=== PATIENT | male | born 2000 | race Caucasian/White ===

== ENCOUNTER 2022-09-29 12:59 | Outpatient (CLI) | payer OTHER ==
[2022-09-29 13:38] VITALS: BP 108/68
--- NOTE | 2022-09-29 13:38 | SLEEP CARE CONSULTATION ---
Information from patient questionnaire entered by Shahid Paez. I have reviewed and concur with the information entered by Shahid Paez. This document represents the service I personally performed and the decisions made by me, Kareen Shelby ARNP. History of Present Illness Service Date and Time: 09/29/2022 1259 Reason for Visit: New patient Chief Complaint: reports: Insomnia, Unrefreshed sleep, Snoring, Fatigue, Frequent awakenings at night Date of Onset: 5+YRS Usual bedtime: 2AM Time it takes to fall asleep: HRS NORMALLY Snores at night: Yes Observed to quit breathing while asleep: Yes Sleeps alone due to snoring: No Number of times waking at night: 5+ Reasons for waking at night: reports: Pain, Bathroom, Other (NOISE, UNKNOWN). denies: Choking, Snoring, Gasping for air Toss, Turn, or Twitch while sleeping: Yes Recalls having dreams: No Usually gets out of bed at: 1PM Feels refreshed in the morning: No Morning headache: Yes (nightly lately; AFTER AN HR OR TWO) Sleepy or fatigued during the day: Yes Ever fallen asleep while driving: No Takes day naps: Yes (rarely) Dreams during day naps: No Prior sleep studies: No Additional HPI information: I had the pleasure of seeing LAZARO ROJAS today regarding the possibility of him having a sleep disorder. His current complaints are fatigue, frequent night awakenings, snoring and unrefreshed sleep. He was following up with PCP and they asked him about sleep. He was then referred here after some evaluation. He states it takes hours for him to fall asleep. He did try melatonin a couple of times and this did help a little. He did not take it long because he does not like taking medication. He states he just lays and looks at ceiling, trying not to think. He denies racing thoughts. He states his has told him that he snores loudly and will stop breathing at night. He will wake up frequently during the night. He states he has a grandfather who is on a breathing machine at night but does not know if it is for sleep apnea or his heart. - Parasomnia Symptoms Ever been unable to move upon waking from sleep: No Walks in sleep: No (did when a kid) Talks in sleep: Yes Ever acted out dreams in sleep: Yes (small movements) Ever felt weak in the knees when startled or emotional: No Bothered by creepy, crawly, restless sensations in legs: Yes (frequently, throughout the day) Problems with memory or concentration: No Subjective Initial [place] Sleepiness Scale score: 5 (09/29/22) Past Medical History Past Medical History: reports: GERD (as a child, better now with weight loss), Other (injuries to both knees when younger) Social History The patient's occupation is a AM. Patient is and lives in . Have you smoked in the past 12 months: No Alcohol use: Yes Alcohol amount and frequency: 1-2 DRINKS LESS THAN A MONTH Caffeine use: Yes Caffeine amount and frequency: 1-2 MONSTERS DAILY Family History Family history of sleep disordered breathing: Yes Family Hx Sleep Apnea: Mother: Snoring, Sleep apnea - Untreated, Father: Snoring, Sleep apnea - Untreated, Sibling: Sleep apnea - Untreated, Grandparent: Snoring, Sleep apnea - Untreated Allergies and Home Medications Known drug allergies: No Drug allergies reviewed: Yes Home medication list reviewed: Yes (no daily medications) Review of Systems Weight loss over past 5 years: 150 Cardiovascular: reports: irregular heart rate or pulse. denies: high blood pressure Gastrointestinal: reports: heartburn Neurological: reports: headaches Psychiatric: denies: anxiety, depression Ear/Nose/Throat: reports: nasal congestion, sinus problems, nose bleeds, dry mouth/throat, injury to nose. denies: tonsillectomy Endocrine: reports: too hot or cold, excessive thirst Musculoskeletal: reports: joint pain, neck pain, back pain, muscle pain or cramping Immunologic: reports: sneezing Physical Exam Vital signs obtained and entered by: SHAHID Barton MA Blood Pressure: 108/68 (LEFT ARM) Cuff size: regular Heart Rate: 64 O2 Saturation: 98 Height: 5 ft 10 in Weight: 207 lb 9.6 oz Body Mass Index: 29.7 BMI Classification: Overweight Neck circumference: 15.25 Nostrils: patent to airflow Mouth and throat: narrow oropharynx Soft palate: long Hard palate: normal Uvula: normal Uvula visualization: 50% Mallampati Class II Tongue: enlarged in size with teeth holder on lateral edges Tonsils: small Neck: normal w/o lymphadenopathy or thyromegaly Heart: regular rate and rhythm Lungs: clear bilaterally Impression and Plan 1. Suspected Obstructive Sleep Apnea-Hypopnea Syndrome, as suggested by a history of loud and irregular snoring, observed cessation of breath while asleep, frequent awakening during the night and unrefreshed sleep. Narrow oropharynx and obesity are common predisposing factors for obstructive sleep apnea-hypopnea syndrome. I recommend proceeding to polysomnography to confirm the diagnosis and to assess severity. If the patient has significant sleep disordered breathing, a manual CPAP titration study will also be performed to find the optimal treatment pressure. I informed the patient of what the sleep studies involve and after some discussion, obtained agreement to proceed. The pathophysiology of obstructive sleep apnea-hypopnea syndrome was discussed with the patient and health risks of cardiovascular and cerebrovascular disease if not treated. Risks of drowsy driving discussed in detail and patient advised to avoid long distance driving and to lung puller at the first sign of drowsiness. Patient agreed to plan. * Schedule polysomnography +- manual CPAP titration study and return in 1-2 weeks after the study to discuss result and initiate therapy. * Avoid long distance driving or driving when feeling sleepy. * Avoid alcohol, sedative and muscle relaxant around bedtime. * Attempt to lose weight. * Review instructions provided by trained office staff on how to prepare for the sleep study. * Return for follow-up after sleep study completed. Counseling Topics: Weight loss health impact Visit Type: In Office Time Spent with Patient (minutes): 21 Provider Statement: I spent 100% of the Face to Face Visit with the patient with greater than 50% spent counseling the patient and coordination of care.
== END 2022-09-29 13:00 | disposition home or self-care (01) ==
LOC: SC 12:59
PROVIDERS: ATTEND Nurse Practitioner Family
DX: R06.83 Snoring (principal); R06.81 Apnea, not elsewhere classified; G47.8 Other sleep disorders; E66.3 Overweight; Z68.29 Body mass index [BMI] 29.0-29.9, adult
CPT/HCPCS: 99202; 99212

== ENCOUNTER 2022-12-09 14:17 | Outpatient (CLI) | payer OTHER | END 2022-12-09 14:18 | disposition home or self-care (01) | LOC: SC 14:17 | PROVIDERS: ATTEND Nurse Practitioner Family | DX: R06.83 Snoring (principal); G47.8 Other sleep disorders; R06.81 Apnea, not elsewhere classified; R53.83 Other fatigue; E66.3 Overweight; Z68.29 Body mass index [BMI] 29.0-29.9, adult | CPT/HCPCS: 95806 ==

== ENCOUNTER 2023-01-26 08:58 | Outpatient (CLI) | payer OTHER ==
--- NOTE | 2023-01-26 09:29 | SLEEP CARE CONSULTATION ---
Information from patient questionnaire entered by Franci Paez. I have reviewed and concur with the information entered by Franci Paez. This document represents the service I personally performed and the decisions made by , Kareen Shelby ARNP. History of Present Illness Service Date and Time: 01/26/2023 08 Initial [place] Sleepiness Scale score: 5 (09/29/22) Current [place] Sleepiness Scale score: 3 (01/26/23) Additional HPI information: LAZARO ROJAS returns for follow up and results of the recently performed home sleep study. The patient was informed of the following findings: No significant sleep disordered breathing with an average AHI of 1.2 and ibllie oxygen saturation of 92%. I explained the pathophysiology behind obstructive sleep apnea. Patient does not have sleep apnea and was advised how weight gain could increase the risk of developing sleep apnea in the future. I strongly encouraged the patient to lose weight. Patient has light snoring. Snoring can be reduced by weight loss. Weight loss is best achieved with diet consult. Patient instructed to contact PCP for referral. Snoring can also be treated with an oral appliance from a dentist. Advised to check insurance coverage. In addition, an ENT evaluation can be do to see if other treatment is indicated. Patient counseled not drink alcohol less than 4 hours before bedtime as it can increase snoring and apnea. Patient was cautioned about risks of drowsy driving until sleepiness symptoms resolve. Patient denies drowsy driving. Sleep Study - Results Type of Sleep Study: Home sleep study (COMPLETED ON 12/10/22) Prior sleep studies: No Polysomnography/Home Sleep Study results: Physician Impression: The quality of the study is good. The length of the study is adequate (> 240 minutes). Please also see the tabulated and graphic data. 1. No significant sleep disordered breathing, with an AHI of 1.2/hr and billie SaO2 of 92%. During the study, the patient had 2 apneas (2 obstructive, 0 central, 0 mixed) and 6 hypopneas. The longest episode lasted 73.0 seconds. The patient slept mostly supine (supine AHI was 1.5 and non-supine, 0.71). Allergies and Home Medications Known drug allergies: No Drug allergies reviewed: Yes Home medication list reviewed: Yes (no changes) Review of Systems Review of systems same as previous: Yes (no changes) Physical Exam Vital signs obtained and entered by: FRANCI Barton MA Blood Pressure: 122/72 (LEFT ARM) Cuff size: regular Heart Rate: 64 O2 Saturation: 99 Height: 5 ft 10 in Weight: 222 lb Body Mass Index: 31.8 BMI Classification: Obese Impression and Plan 1. Snoring but no significant sleep disordered breathing. Patient advised that often weight loss will reduce snoring as well as apnea risk. An oral appliance can also be used for snoring. This would require a dental consultation. Patient cautioned not to use other online appliances as can cause bite issues. Patient is advised to check if insurance will cover. An ENT consult can also be helpful to determine if any other treatment is an option. 2. Obesity, unspecified. Currently patients BMI is 31.8. Obesity increases the risk of apnea, CPAP pressure requirements and overall health risks especially cardiovascular and diabetes. Thus patient is advised to lose weight. * Attempt to lose weight * Avoid alcohol consumption near bedtime * The patient is cautioned about driving until sleepiness is completely resolved. * Return as needed for follow up. Counseling Topics: Weight loss health impact Visit Type: In Office Provider Statement: I spent 100% of the Face to Face Visit with the patient with greater than 50% spent counseling the patient and coordination of care.
--- NOTE | 2023-01-26 09:30 | Sleep Patient Instructions ---
Sleep Center Visit Summary - Patient Visit Information Reason for Visit: Sleep Study followup - Patient Instructions Additional Instructions: Your sleep study today was negative for significant sleep disordered breathing. You were found to have episodes of snoring. There are different ways to control snoring including weight loss, oral devices made by a dentist or surgical options through ENT specialist. You should not use oral devices that do not fit properly because they can affect your bite. You should also check insurance coverage of oral devices for snoring because they may not be cover well. You may obtain a referral to an ENT specialist through your primary provider Follow-up as needed. - Clinic Information Contact: [facility] [address] [place] [id number] [email or web address] T: [phone]
[2023-01-26 09:38] VITALS: BP 122/72; O2SAT 99
== END 2023-01-26 08:59 | disposition home or self-care (01) ==
LOC: SC 08:58
PROVIDERS: ATTEND Nurse Practitioner Family
DX: R06.83 Snoring (principal); E66.9 Obesity, unspecified; Z68.31 Body mass index [BMI] 31.0-31.9, adult
CPT/HCPCS: 99212

== ENCOUNTER 2023-05-01 12:42 | Outpatient (CLI) | payer OTHER ==
--- NOTE | 2023-05-02 15:24 | MRI Report ---
PROCEDURE: BRAIN WO INDICATIONS: MIGRAINE TECHNIQUE: Noncontrast axial T1 spin echo, axial T2 fast spin echo, sagittal and axial FLAIR, coronal T2 fast sp in echo, axial gradient echo, axial diffusion and ADC through the brain. COMPARISON: None. FINDINGS: Image quality: Excellent. CSF Spaces: Basal cisterns are patent. No extra-axial fluid collections. Ventricles are normal in size and shape. Brain: No intracranial masses or hemorrhage. Almazan/white matter interface is normal. Brainstem appe ars normal. Diffusion-weighted images demonstrate no acute ischemic insult. No chronic ischemic ins ults. Normal intravascular flow voids are present. Skull and face: Calvarium has normal marrow signal. Orbits appear normal. Sinuses: Sinuses and mastoids are clear. IMPRESSION: Unremarkable brain MRI. No acute intracranial process. Reviewed by: Jeffy Guo MD on 05/02/2023 3:23 PM PST Approved by: Jeffy Guo MD on 05/02/2023 3:23 PM [facility] Station ID: [id number]
== END 2023-05-01 12:43 | disposition home or self-care (01) ==
LOC: DI 12:42
PROVIDERS: ATTEND Student in an Organized Health Care Education/Training Program
DX: G43.909 Migraine, unspecified, not intractable, without status migrainosus (principal)

== ENCOUNTER 2023-07-10 14:00 | Outpatient (CLI) | payer OTHER ==
[2023-07-10 18:44] LABS: INFECTIOUS MONONUCLEOSIS POSITIVE (Negative)
== END 2023-07-10 14:15 | disposition home or self-care (01) ==
LOC: LAB.N 14:00
PROVIDERS: ATTEND Physician Assistant
DX: J31.2 Chronic pharyngitis (principal)
CPT/HCPCS: 86308; 87070